=== PATIENT | male | born 1990 | race Caucasian/White ===

== ENCOUNTER 2017-02-27 16:55 | Emergency (ER) | payer OTHER ==
[2017-02-27 17:31] VITALS: BP 147/94; PULSE 80; RESP 18; TEMP 98.6
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
--- NOTE | 2017-02-27 18:36 | XR ---
EXAMINATION TYPE: XR foot complete LT DATE OF EXAM: 02/27/2017 6:02 PM COMPARISON: NONE HISTORY: Pain TECHNIQUE: 3 views FINDINGS: I see no fracture nor dislocation. Metatarsals are intact. Joint spaces are normal. IMPRESSION: Normal left foot
--- NOTE | 2017-02-27 18:36 | XR ---
EXAMINATION TYPE: XR cervical spine comp DATE OF EXAM: 02/27/2017 6:02 PM COMPARISON: NONE HISTORY: Pain TECHNIQUE: 5 views FINDINGS: Cervical vertebra have normal spacing and alignment. Posterior elements are intact. [place] axial facet joint is normal. There are no cervical ribs. IMPRESSION: Normal cervical spine.
== END 2017-02-27 18:58 | disposition home or self-care (01) ==
LOC: EC 16:55
DX: S13.9XXA Sprain of joints and ligaments of unspecified parts of neck, initial encounter (principal); S93.602A Unspecified sprain of left foot, initial encounter; F17.200 Nicotine dependence, unspecified, uncomplicated; Y08.89XA Assault by other specified means, initial encounter; Y92.69 Other specified industrial and construction area as the place of occurrence of the external cause; Y99.0 Civilian activity done for income or pay
CPT/HCPCS: 72050; 99284

== ENCOUNTER → 2017-03-08 | Outpatient (CLI) | payer OTHER ==
--- NOTE | 2017-03-08 14:46 | XR ---
Left foot HISTORY: Left foot sprain 3 views of the left foot correlated to prior exam 02/27/2017, left ankle today There is no significant change. Punctate metallic densities at the volar aspect of the forefoot thoug ht likely to represent artifact. IMPRESSION: Stable exam, no acute abnormality is evident.
--- NOTE | 2017-03-08 14:47 | XR ---
Left ankle HISTORY: Ankle sprain Correlation to left foot same day 3 views of the left ankle Bone mineralization, joint spaces and alignment are maintained IMPRESSION: No acute fracture or dislocation.
== END | disposition home or self-care (01) ==
LOC: RADXRMAIN 14:17
PROVIDERS: ATTEND Emergency Medicine
DX: S93.402D Sprain of unspecified ligament of left ankle, subsequent encounter (principal); S93.602D Unspecified sprain of left foot, subsequent encounter